=== PATIENT | female | born 1985 | race African-American/Black ===

== ENCOUNTER 2017-06-30 15:20 | Emergency (ER) | payer MEDICAID, OTHER ==
[~2017-06-30] VITALS: Ht 172.7 cm; Wt 108.0 kg
[2017-06-30 15:20] VITALS: BP 134/89; PULSE 73; RESP 16; TEMP 98.5; O2SAT 99
--- NOTE | 2017-06-30 15:34 | PD ---
Physical Exam Date Seen by Provider: Jun 30, 2017 Time Seen by Provider: 15:32 Narrative 31 YOBF C/O TREVIÑO WEAK AND DIZZY. LMP 1 WEEK AGO. [id number] VS REVIEWED WAITING FOR BED PLACEMENT Data Data Last Documented VS Vital Signs Date Time Temp Pulse Resp B/P Pulse Ox O2 Delivery O2 Flow Rate FiO2 06/30/17 15:20 98.5 73 16 134/89 99 Room Air MDM Supervised Visit with LISANDRA: Jase Hernandez Jun 30, 2017 15:34
[2017-06-30 16:06] VITALS: BP 154/73; PULSE 75; RESP 16; O2SAT 99
[2017-06-30] MEDS ORDERED: SODIUM CHLOR 0.9% 1000 ML INJ 1,000 ML IV ONE (16:15)
--- NOTE | 2017-06-30 16:21 | PD ---
HPI Chief Complaint: Syncope/Near-Syncope Time Seen by Provider: 15:58 Travel History International Travel<30 days: No Contact w/Intl Traveler<30days: No Traveled to known affect area: No History of Present Illness HPI Patient is a 31-year-old female who presents to emergency room with a near syncopal episode today. Patient reports that she was at work today and felt lightheaded and dizzy after lunch. 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 Reports that she has been feeling lightheaded and dizzy, reports that she did have orange juice after this event and did not feel any better. Patient denies any fevers or chills, denies any chest pain or shortness breath at this time. Patient reports no medical problems, denies any drugs or alcohol. PFSH Past Medical History Kidney Stones: Yes Migraines: Yes ?: Not LMP: LAST WEEK Past Surgical History Surgical History: No Previous Surgery Other Surgery: Yes (kidney stone removal ) Social History Alcohol Use: No Tobacco Use: No Substance Use: No Allergies-Medications (Allergen,Severity, Reaction): Coded Allergies: No Known Allergies (Unverified , 06/30/17) Reported Meds & Prescriptions Reported Meds & Active Scripts Active No Active Prescriptions or Reported Medications Review of Systems General / Constitutional: No: Fever Eyes: No: Visual changes HENT: Positive: Lightheadedness, No: Headaches, Neck Stiffness, Neck Pain Cardiovascular: No: Chest Pain or Discomfort Respiratory: No: Shortness of Breath Gastrointestinal: No: Nausea, Vomiting, Abdominal Pain Genitourinary: No: Dysuria Musculoskeletal: No: Pain Skin: No Rash Neurologic: Positive: Dizziness, No: Weakness, Headache Psychiatric: No: Depression Endocrine: No: Polydipsia Hematologic/Lymphatic: No: Easy Bruising Physical Exam Narrative GENERAL: NAD, Nontoxic SKIN: Focused skin assessment warm/dry. HEAD: Atraumatic. Normocephalic. EYES: Pupils equal and round. No scleral icterus. No injection or drainage. ENT: No nasal bleeding or discharge. Mucous membranes pink and moist. NECK: Trachea midline. No JVD. CARDIOVASCULAR: Regular rate and rhythm. No murmur appreciated. RESPIRATORY: No accessory muscle use. Clear to auscultation. Breath sounds equal bilaterally. GASTROINTESTINAL: Abdomen soft, non-tender, nondistended. Hepatic and splenic margins not palpable. MUSCULOSKELETAL: No obvious deformities. No clubbing. No cyanosis. No edema. NEUROLOGICAL: Awake and alert. No obvious cranial nerve deficits. Motor grossly within normal limits. Normal speech. CN 2-12 grossly intact with no neurological deficits PSYCHIATRIC: Appropriate mood and affect; insight and judgment normal. Data Data Last Documented VS Vital Signs Date Time Temp Pulse Resp B/P Pulse Ox O2 Delivery O2 Flow Rate FiO2 06/30/17 16:06 75 16 154/73 99 Room Air 06/30/17 15:20 98.5 Orders Ed Urine Pregnancytest Poc (06/30/17 15:37) Complete Blood Count With Diff (06/30/17 15:37) Basic Metabolic Panel (Bmp) (06/30/17 15:37) Urinalysis - C+S If Indicated (06/30/17 15:38) Sodium Chlor 0.9% 1000 Ml Inj (Ns 1000 M (06/30/17 16:15) Orthostatic Vital Signs (06/30/17 16:17) Electrocardiogram (06/30/17 ) Urine Culture (06/30/17 15:40) Ceftriaxone Inj (Rocephin Inj) (06/30/17 16:45) Labs Laboratory Tests Test 06/30/17 06/30/17 15:40 15:45 Urine Color YELLOW Urine Turbidity HAZY Urine pH 6.5 Urine Specific [place] 1.026 Urine Protein 30 mg/dL Urine Glucose (UA) NEG mg/dL Urine Ketones NEG mg/dL Urine Occult Blood NEG Urine Nitrite NEG Urine Bilirubin NEG Urine Urobilinogen 4.0 MG/DL Urine Leukocyte Esterase LARGE Urine RBC 9 /hpf Urine WBC 52 /hpf Urine Squamous Epithelial 7 /hpf Cells Urine Bacteria RARE /hpf Urine Mucus FEW /lpf Microscopic Urinalysis Comment CULTURE INDICATED White Blood Count 6.8 TH/MM3 Red Blood Count 4.86 MIL/MM3 Hemoglobin 11.7 GM/DL Hematocrit 36.6 % Mean Corpuscular Volume 75.4 FL Mean Corpuscular Hemoglobin 24.1 PG Mean Corpuscular Hemoglobin 31.9 % Concent Red Cell Distribution Width 17.4 % Platelet Count 267 TH/MM3 Mean Platelet Volume 8.2 FL Neutrophils (%) (Auto) 57.8 % Lymphocytes (%) (Auto) 32.6 % Monocytes (%) (Auto) 6.7 % Eosinophils (%) (Auto) 2.4 % Basophils (%) (Auto) 0.5 % Neutrophils # (Auto) 3.9 TH/MM3 Lymphocytes # (Auto) 2.2 TH/MM3 Monocytes # (Auto) 0.5 TH/MM3 Eosinophils # (Auto) 0.2 TH/MM3 Basophils # (Auto) 0.0 TH/MM3 CBC Comment DIFF FINAL Differential Comment Sodium Level 138 MEQ/L Potassium Level 3.7 MEQ/L Chloride Level 104 MEQ/L Carbon Dioxide Level 26.5 MEQ/L Anion Gap 8 MEQ/L Blood Urea Nitrogen 9 MG/DL Creatinine 0.66 MG/DL Estimat Glomerular Filtration 128 ML/MIN Rate Random Glucose 80 MG/DL Calcium Level 8.8 MG/DL MDM Medical Decision Making Medical Screen Exam Complete: Yes Emergency Medical Condition: Yes Interpretation(s) Vital Signs Date Time Temp Pulse Resp B/P Pulse Ox O2 Delivery O2 Flow Rate FiO2 06/30/17 16:06 75 16 154/73 99 Room Air 06/30/17 15:20 98.5 73 16 134/89 99 Room Air Differential Diagnosis Differential includes orthostatic hypotension, electrolyte abnormality, UTI, dehydration, arrhythmia, Narrative Course Patient is a 31-year-old female who presents to emergency room for evaluation a near syncopal episode while at work today. Reports that after lunch, she felt lightheaded and dizzy and felt as if she was going to "pass out." She did have her blood glucose checked and it was "low" at 74. No history of diabetes or hypoglycemia. Patient does not take any medications at this time. Reports that after this event, she felt "shakey" in both her hands and weak. No chest pain/sob. No fever/chills. No other c/o. Vital Signs Date Time Temp Pulse Resp B/P Pulse Ox O2 Delivery O2 Flow Rate FiO2 06/30/17 16:06 75 16 154/73 99 Room Air 06/30/17 15:20 98.5 73 16 134/89 99 Room Air Patient with benign neuro exam. Plan to obtain lab work as well as UA. Will administer IVF and monitor on accounts receivable analyst CBC & BMP Diagram 06/30/17 15:45 BMP: sodium 138, potassium 3.7, bun 9, cr 0.66, glucose 80 UA: Positive for large leuk esterase, 52 white blood cells, rare bacteria, hazy urine, urine culture sent Plan to treat for UTI. Will give IVF and a dose of rocephin. Patient will follow up with her pcp and will return to ER as needed. She will follow up with all cultures from today Diagnosis Primary Impression: UTI (urinary tract infection) Qualified Code: N30.01 - Acute cystitis with hematuria Additional Impression: Near syncope Patient Instructions: General Instructions Additional Instructions: Please follow up with your primary care doctor Please follow up with all cultures from today Please take all antibiotics as prescribed Please drink plenty of fluids Return to ER as needed or symptoms return to persist Med/Other Pt SpecificInfo: Prescription(s) given Scripts Nitrofurantoin Monohydrate Macrocrystals (Macrobid)100 Mg Fcp036 Mg PO BID 10 Days Ref 0 Prov:Ara Tillman DO 06/30/17 Disposition: 01 DISCHARGE HOME Condition: Stable Ara Tillman DO Jun 30, 2017 16:21
[2017-06-30 16:22] LABS: BACTERIA, URINE RARE /hpf; BLOOD, URINE NEG (NEG); COMMENT (UR) CULTURE INDICATED; CULTURE IF INDICATED CULTURE INDICATED; GLUCOSE,URINE NEG (NEG); KETONE, URINE NEG (NEG); MUCUS URINE FEW /lpf (OCC); NITRITE,URINE NEG (NEG); PH, URINE 6.5 (5.0-8.5); SQUAMOUS EPITHELIAL CELL URINE 7 /hpf (0-5); URINE COLOR YELLOW (YELLW/STRAW)
[2017-06-30 16:22] LABS: AUTOMATED NEUTROPHIL # 3.9 TH/MM3 (1.8-7.7); BASOPHIL % 0.5 % (0.0-2.0); EOSINOPHIL # 0.2 TH/MM3 (0-0.4); EOSINOPHIL % 2.4 % (0.0-4.0); HEMATOCRIT 36.6 % (35.0-46.0); HEMO FLAGS DIFF FINAL; LYMPH % 32.6 % (9.0-44.0); LYMPHOCYTE # 2.2 TH/MM3 (1.0-4.8); MEAN CELL VOLUME 75.4 FL (80.0-100.0); MEAN CORPUSCULAR HEMOGLOBIN 24.1 PG (27.0-34.0); MEAN CORPUSCULAR HGB CONC 31.9 % (32.0-36.0); MONO % 6.7 % (0.0-8.0); NEUT % 57.8 % (16.0-70.0); PLATELET COUNT 267 TH/MM3 (150-450); RED BLOOD COUNT 4.86 MIL/MM3 (4.00-5.30); RED CELL DISTRIBUTION WIDTH 17.4 % (11.6-17.2); WHITE BLOOD COUNT 6.8 TH/MM3 (4.0-11.0)
[2017-06-30 16:38] LABS: BICARBONATE 26.5 MEQ/L (21.0-32.0); POTASSIUM 3.7 MEQ/L (3.5-5.1)
[2017-06-30] MEDS ORDERED: MACR100C2 PO (16:43)
[2017-06-30] MEDS ORDERED: cefTRIAXone INJ 1,000 MG in SODIUM CHLORIDE 0.9% INJ 50 ML IV ONE (16:45)
[2017-06-30 17:04] VITALS: BP_SYST 147; BP_SYST 154; BP_SYST 164; BP_DIAS 70; BP_DIAS 75; BP_DIAS 98
[2017-06-30] MEDS ORDERED: ACETAMINOPHEN 325 MG TAB PO ONE (17:15)
[2017-06-30 18:02] VITALS: RESP 16
--- NOTE | 2017-07-01 09:16 | EKG ---
Date Performed: 06/30/2017 Time Performed: 16:59:44 PTAGE: 31 years EKG: Sinus rhythm NORMAL ECG NO PREVIOUS TRACING DOCTOR: Leighton Addison Interpretating Date/Time 07/01/2017 09:05:38
== END 2017-06-30 18:04 | disposition home or self-care (01) ==
LOC: NEPD 15:20
DX: N30.01 Acute cystitis with hematuria (principal); R55 Syncope and collapse
CPT/HCPCS: 80048; 81001; 84703; 85025; 87086; 93005; 96361; 96365; 99284; J0696; J7030

== ENCOUNTER 2018-05-05 16:44 | Emergency (ER) | payer SELFPAY ==
[~2018-05-05] VITALS: Ht 172.7 cm; Wt 100.0 kg
[~2018-05-05 16:44] MED LIST: MACR100C2 PO
[2018-05-05 17:21] VITALS: BP 139/63; PULSE 82; RESP 16; TEMP 97.6; O2SAT 100
[2018-05-05] MEDS ORDERED: IBUPROFEN 800 MG TAB PO ONE (17:45)
[2018-05-05] MEDS ORDERED: IBUP1TAB7 PO (17:54)
--- NOTE | 2018-05-05 17:54 | PD ---
HPI Chief Complaint: Musculoskeletal Complaint Time Seen by Provider: 17:37 Travel History International Travel<30 days: No Contact w/Intl Traveler<30days: No Traveled to known affect area: No History of Present Illness HPI 32-year-old female presents to emergency department with complaint of left ankle pain for the past few years and worsening for the past 2 days. Denies injury. Reports numbness and tingling in her foot, otherwise denies loss of sensation, decreased range of motion, decreased strength to the affected extremity. Has been ambulatory in the affected extremity. Denies fever, vomiting. Rates pain 10/10 with ambulation. 7/10 at rest. Has not taken any medications or trying treatments to alleviate her symptoms. No primary care provider. No known allergies. History of type 2 diabetes mellitus. Has no other medical complaints. No other modifying factors or associated signs and symptoms. PFSH Past Medical History Kidney Stones: Yes Migraines: Yes Past Surgical History Other Surgery: Yes (kidney stone removal ) Social History Alcohol Use: No Tobacco Use: No Substance Use: No Allergies-Medications (Allergen,Severity, Reaction): Coded Allergies: No Known Allergies (Unverified Adverse Reaction, Unknown, 05/05/18) Reported Meds & Prescriptions Reported Meds & Active Scripts Active Ibuprofen 800 Mg Tab 800 Mg PO Q6HR PRN Review of Systems Except as stated in HPI: all other systems reviewed are Neg Physical Exam Narrative GENERAL: Well-nourished, well-developed black female patient, in no acute distress SKIN: Warm and dry. HEAD: Atraumatic. Normocephalic. EYES: Pupils equal and round. No scleral icterus. No injection or drainage. ENT: Mucosa pink and moist. Airway patent. NECK: Trachea midline. CARDIOVASCULAR: Regular rate. RESPIRATORY: No accessory muscle use. GASTROINTESTINAL: Rounded MUSCULOSKELETAL: Left ankle with point tenderness to the lateral and medial malleoli zone with palpation; minimal edema; without erythema, ecchymosis; no obvious deformity. Left lower extremity is supple and nontense with 2+ pedal pulse and sensory intact. No obvious deformities. No clubbing. No cyanosis. No edema. NEUROLOGICAL: Awake and alert. Oriented 3. No obvious cranial nerve deficits. Motor grossly within normal limits. Normal speech. PSYCHIATRIC: Appropriate mood and affect; insight and judgment normal. Data Data Last Documented VS Vital Signs Date Time Temp Pulse Resp B/P (MAP) Pulse Ox O2 Delivery O2 Flow Rate FiO2 05/05/18 17:21 97.6 82 16 139/63 (88) 100 Orders Orders Ankle, Complete ([id number]) (05/05/18 17:41) Ibuprofen (Motrin) (05/05/18 17:45) Ed Discharge Order (05/05/18 19:00) Splint Or Brace Apply/Monitor (05/05/18 19:02) MDM Medical Decision Making Medical Screen Exam Complete: Yes Emergency Medical Condition: Yes Medical Record Reviewed: Yes Differential Diagnosis Heel spur, arthritis, ankle sprain Narrative Course 32-year-old female with left ankle pain. Ibuprofen and left ankle x-ray ordered. 1899: Left ankle x-ray concluded: Last 24 hours Impressions Ankle X-Ray 05/05/181740 Signed Impressions: CONCLUSION: Negative examination She provided a copy of the x-ray report. I have the patient ankle stirrup splint and crutches and she declined. Fritz bandage provided for support. Ibuprofen prescribed for home. Instructed patient to follow-up with chief wheelage clerk if symptoms persist. Instructed patient to follow up with primary care provider. Patient verbalizes understanding and agreement with treatment plan. Patient is medically cleared and stable for discharge. Discussed reasons to return to the emergency department. Patient agrees with treatment plan. The patients vital signs are stable and the patient is stable for outpatient follow- up and treatment. Patient discharged home, stable and in no acute distress. Diagnosis Primary Impression: Left ankle pain Qualified Codes: M25.572 - Pain in left ankle and joints of left foot Referrals: [facility] Crm Solution Architect Primary Care Physician Patient Instructions: General Instructions, Musculoskeletal Pain (ED) Additional Instructions: Tylenol or ibuprofen as directed and as needed for pain and inflammation Rest, ice, compress, and elevate extremity to decrease pain and inflammation Ankle brace as needed for compression and support Avoid aggravating activity; increase activity as tolerated Follow-up with primary care provider Follow-up with chief wheelage clerk if symptoms persist Return to the emergency department immediately with worsening of symptoms Med/Other Pt SpecificInfo: Prescription(s) given Scripts Ibuprofen (Ibuprofen) 800 Mg Tab 800 MG PO Q6HR Y for PAIN, #20 TAB 0 Refills Prov: Johana Greco 05/05/18 Disposition: 01 DISCHARGE HOME Condition: Stable Johana GrecoP May 05, 2018 17:54
--- NOTE | 2018-05-05 18:46 | RADRPT ---
EXAM DATE: 05/05/2018 6:11 PM EDT AGE/SEX: 32 years / Female INDICATIONS: Left ankle pain; no known injury. CLINICAL DATA: This is the patient's initial encounter. Patient reports that signs and symptoms have been present for > 1 year and indicates a pain score of 3/10. MEDICAL/SURGICAL HISTORY: None. None. COMPARISON: None. FINDINGS: Bony structures are intact and in normal alignment. Joints are intact without dislocation or signifi cant arthropathy. Osseous density is normal. Soft tissues are unremarkable. No radiopaque foreign bodies seen. CONCLUSION: Negative examination Electronically signed by: Olivier Almonte MD 05/05/2018 6:45 PM EDT
== END 2018-05-05 19:11 | disposition home or self-care (01) ==
LOC: NEPK 16:44
DX: M25.572 Pain in left ankle and joints of left foot (principal); E11.9 Type 2 diabetes mellitus without complications; Z87.442 Personal history of urinary calculi
CPT/HCPCS: 73610; 99283